=== PATIENT | female | born 1985 | race Caucasian/White ===

== ENCOUNTER 2021-12-20 03:20 | Inpatient (IN) ==
[2021-12-20] MEDS ORDERED: Buffered Lidocaine 1% SYRIN 1 ml INTRADERM ONE (04:16)
[2021-12-20] MEDS ORDERED: Lactated Ringers 1000 ml BAG 1,000 ML IV ONE ×2 (04:16→05:45)
[2021-12-20 04:21] LABS: Hematocrit 34 % (35-47); Hemoglobin 10.5 g/dL (12.0-16.0); Mean Corpuscular HGB Conc 31 g/dL (31-36); Mean Corpuscular Hemoglobin 19 pg (27-31); Mean Corpuscular Volume 61 fL (80-97); Mean Platelet Volume 10.9 fL (7.4-10.4); Platelet Count 226 10^3/uL (150-450); Red Blood Count 5.53 10^6 /uL (3.70-4.87); Red Cell Distribution Width 15 % (10-15); White Blood Count 25.8 10^3/uL (3.5-10.8)
[2021-12-20] MEDS ORDERED: OBEPIDURAL (200 ML) 200 ML EPIDURAL ONE (04:24)
[2021-12-20 04:26] LABS: Urine Benzodiazepine Screen None Detected (None Detect); Urine Cannabinoids Screen None Detected (None Detect); Urine Opiates Screen None Detected (None Detect)
[2021-12-20 04:37] LABS: Albumin 3.5 g/dL (3.2-5.2); Albumin/Globulin Ratio 1.2 (1-3); Calcium 9.2 mg/dL (8.6-10.3); Potassium 3.4 mmol/L (3.5-5.0); Total Bilirubin 0.8 mg/dL (0.2-1.0); Total Protein 6.5 g/dL (6.4-8.9)
[2021-12-20] MEDS ORDERED: Lactated Ringers 1000 ml BAG 1,000 ML IV SCH ×3 (05:00→18:00)
[2021-12-20] MEDS ORDERED: Sodium Citrate/Citric Acid LIQ 15 ML UDC PO PRN (05:45)
[2021-12-20] MEDS ORDERED: Phenylephrine 40 mcg/mL 10mL (400mcg) SYRINGE IV PUSH PRN ×2 (05:45)
[2021-12-20] MEDS ORDERED: EPHEDrine (Pressors) 50 MG/ML VIAL IV PUSH PRN ×2 (05:45)
[2021-12-20] MEDS ORDERED: OBEPIDURAL (200 ML) 200 ML EPIDURAL SCH (06:00)
[2021-12-20 06:23] LABS: Urine Appearance Clear; Urine Bilirubin Negative (Negative); Urine Blood 1+ (Negative); Urine Color Straw; Urine Glucose Negative (Negative); Urine Ketones 1+ (Negative); Urine Nitrite Negative (Negative); Urine Protein Negative (Negative); Urine Specific Gravity 1.003 (1.002-1.030); Urine Urobilinogen Negative (Negative)
[2021-12-20 07:19] LABS: Urine Bacteria Absent (Absent); Urine Red Blood Cell Absent (Absent); Urine White Blood Cell Absent (Absent)
[2021-12-20] MEDS ORDERED: Oxytocin in LR 20 UNITS/1,000 ML BAG IVPB SCH ×2 (09:00→18:00)
[2021-12-20] MEDS ORDERED: diPHENhydraMINE IV 50 MG/ML 1 ml VIAL (BENADRYL) IV ONE (09:00)
[2021-12-20] MEDS ORDERED: Witch Hazel PAD JAR TOPICAL PRN (17:50)
[2021-12-20] MEDS ORDERED: Dibucaine 1% OINT 28.35 GM TUBE PR PRN (17:50)
[2021-12-20] MEDS ORDERED: Glycerin ADULT 2.4 gm SUPP PR PRN (17:50)
[2021-12-20] MEDS ORDERED: Lidocaine 1% VIAL 10 MG/ML VIAL ONE (18:47)
[2021-12-21 07:09] LABS: ABS Basophils 0.1 10^3/ul (0-0.2); ABS Eosinophils 0.1 10^3/ul (0-0.6); ABS Lymphocytes 2.5 10^3/ul (1.0-4.8); ABS Neutrophils 15.3 10^3/ul (1.5-7.7); Eosinophil % 0.7 %; Hematocrit 29 % (35-47); Hemoglobin 9.3 g/dL (12.0-16.0); Lymphocyte % 12.4 %; Mean Corpuscular HGB Conc 32 g/dL (31-36); Mean Corpuscular Hemoglobin 19 pg (27-31); Mean Corpuscular Volume 61 fL (80-97); Mean Platelet Volume 10.7 fL (7.4-10.4); Nucleated Red Blood Cells % 0.1; Platelet Count 220 10^3/uL (150-450); Red Blood Count 4.85 10^6 /uL (3.70-4.87); Red Cell Distribution Width 16 % (10-15); White Blood Count 19.9 10^3/uL (3.5-10.8)
[2021-12-21 15:49] VITALS: BP 99/63
== END 2021-12-21 19:26 | disposition home or self-care (01) | DRG 807 ==
LOC: MCHOBOUT 03:20 → MCHOB 03:28
PROVIDERS: ADMIT Obstetrics & Gynecology; ATTEND Obstetrics & Gynecology